=== PATIENT | female | born 1990 | race Caucasian/White ===

== ENCOUNTER 2019-04-19 07:14 | Emergency (ER) | payer OTHER ==
--- NOTE | 2019-04-19 12:25 | ER ---
REASON FOR EMERGENCY ROOM VISIT: Dysuria. HISTORY: This 28-year-old woman awoke this morning with increased urinary frequency, urgency, and dysuria. Her urinary flow was normal, but she was urinating very frequently. She has a history of urinary tract infection dating back approximately 10 years ago, but none since. She has no prior history of renal disease or nephrolithiasis. PAST MEDICAL HISTORY: Unremarkable. MEDICATIONS: None. ALLERGIES: NONE. REVIEW OF SYSTEMS: Pertinent positives and negatives as listed in the HPI. PHYSICAL EXAMINATION: VITAL SIGNS: She is afebrile. ABDOMEN: Soft and nontender. No CVA tenderness is noted. LABORATORY DATA: Urinalysis is consistent with a lower UTI with positive nitrites, leukocyte esterase, numerous wbc's, and moderate bacteria. IMPRESSION: Lower urinary tract infection. PLAN: Bactrim DS 1 p.o. b.i.d. x5 days. She was instructed to take a lot of fluids orally and should her symptoms persist upon the completion of this antibiotic course, she should have her urine rechecked. All questions were answered. She understands and agreed. ANAIS /[id number]
== END 2019-04-19 08:10 | disposition home or self-care (01) ==
LOC: LB.ED 07:14
DX: N39.0 Urinary tract infection, site not specified (principal)
CPT/HCPCS: 81001; 99282; 99283